=== PATIENT | male | born 1960 | race Caucasian/White ===

== ENCOUNTER 2018-11-19 07:36 | Inpatient (IN) ==
--- NOTE | 2018-11-14 18:02 | EKG Report ---
Test Performed on : 11/14/2018 5:25:47 PM Test Reason : PAT Blood Pressure : / mmHG Vent. Rate : 067 BPM Atrial Rate : 067 BPM P-R Int : 168 ms QRS Dur : 076 ms QT Int : 416 ms P-R-T Axes : 060 063 044 degrees QTc Int : 439 ms Sinus rhythm. with premature supraventricular complexes. Otherwise normal ECG When compared with ECG of 26-OCT-2015 10:56, premature supraventricular complexes. are now present Vent. rate has decreased BY 45 BPM Confirmed by Ángel DUENAS, Matt Fritz ([id number]) on 11/16/2018 9:02:17 AM
[2018-11-14 18:06] LABS: URINE SOURCE CLEAN CATCH
[2018-11-14 18:10] LABS: BASO# 0.02 X1000 (0.0-0.2); BASO% 0.2 % (0.0-0.8); EOS# 0.16 X1000 (0.0-0.7); EOS% 1.9 % (0.0-10.0); HEMATOCRIT 49.4 % (42.0-52.0); HEMOGLOBIN 16.9 g/dL (14.0-18.0); LYMPH# 2.54 X1000 (1.2-3.4); LYMPH% 30.2 % (20.5-51.1); MCHC 34.2 g/dL (33-37); MCV 93.6 FL (81-99); MONO# 1.17 X1000 (0.11-0.59); MONO% 13.9 % (1.7-9.3); MPV 10.6 FL (7.4-10.4); NEUT# 4.51 X1000 (1.4-6.5); NEUT% 53.8 % (42.2-75.2); PLT 102 X1000 (130-400); RBC 5.28 XMIL (4.7-6.1); RDW 12.3 % (11.5-14.5)
[2018-11-14 18:17] LABS: BILIRUBIN URINE NEGATIVE (NEGATIVE); BLOOD URINE NEGATIVE (NEGATIVE); COLOR YELLOW; GLUCOSE URINE NEGATIVE (NEGATIVE); KETONE URINE NEGATIVE (NEGATIVE); LEUKOCYTES URINE NEGATIVE (NEGATIVE); NITRITE URINE NEGATIVE (NEGATIVE); PROTEIN URINE TRACE mg/dL (NEGATIVE); SP GRAVITY URINE 1.025; TURBIDITY URINE CLEAR (CLEAR); UROBILINOGEN URINE 3 mg/dL (NORMAL)
[2018-11-14 18:19] LABS: UR EPITHELIAL CELLS <10 /HPF (<10); URINE BACTERIA NEGATIVE /HPF; URINE RBC <10 /HPF (<10); URINE WBC <10 /HPF (<10)
[2018-11-14 18:20] LABS: HEMOGLOBIN A1C 4.5 % (4.8-6.0)
[2018-11-14 18:25] LABS: INR 1.08; PROTIME 14.9 Seconds (11.0-16.0)
[2018-11-14 18:26] LABS: AGAP 12; BUN 16 mg/dL (8-22); CHLORIDE 103 mmol/L (98-107); COSMO 282; CREATININE 0.7 mg/dL (0.7-1.2); ESTIMATED GFR > 60; GLUCOSE 82 mg/dL (70-104); SODIUM 141 mmol/L (136-145); TCO2 26 mmol/L (25-35)
[2018-11-19] MEDS ORDERED: DIPRIVAN 1% 500 MG/50 ML BOTTLE ONE (07:53)
[2018-11-19] MEDS ORDERED: LYRICA ONE (07:58)
[2018-11-19] MEDS ORDERED: COLACE ONE (07:58)
[2018-11-19] MEDS ORDERED: LR 1,000 ML ONE (07:58)
[2018-11-19] MEDS ORDERED: REGLAN ONE (07:58)
[2018-11-19] MEDS ORDERED: CELEBREX ONE (07:58)
[2018-11-19] MEDS ORDERED: PEPCID ONE (07:58)
[2018-11-19] MEDS ORDERED: NEOSPORIN G.U. IRRIGANT ONE (08:09)
[2018-11-19] MEDS: KEFZOL 1 GM/D5W 2 GM/100 ML IVPB ONE ×2 (08:34→12:41)
[2018-11-19] MEDS: CYKLOKAPRON 1,000 MG/NS 1,000 MG/100 ML IVPB ONE ×2 (09:00→12:42)
[2018-11-19] MEDS ORDERED: ATROPINE ONE (09:42)
[2018-11-19] MEDS ORDERED: OFIRMEV 1000 MG/ISOTONIC SOLN 1,000 MG/100 ML BOTTLE ONE (09:42)
[2018-11-19] MEDS ORDERED: ZOFRAN ONE (09:42)
[2018-11-19] MEDS ORDERED: VERSED ONE (09:42)
[2018-11-19] MEDS ORDERED: DECADRON ONE (09:42)
[2018-11-19] MEDS ORDERED: FENTANYL ONE ×2 (09:42→09:56)
[2018-11-19] MEDS ORDERED: ROBINUL ONE (09:48)
[2018-11-19] MEDS ORDERED: NEO-SYNEPHRINE ONE (10:11)
[2018-11-19] MEDS ORDERED: DIPRIVAN 1% ONE (10:26)
[2018-11-19] MEDS: MARCAINE 0.25% PF/EPI 1:200,000 ONE ×2 (10:50→12:42)
[2018-11-19] MEDS: TORADOL ONE ×2 (10:50→12:43)
[2018-11-19] MEDS: DURAMORPH ONE ×2 (10:50→12:42)
[2018-11-19] MEDS: EXPAREL 1.3% ONE ×2 (10:50→12:43)
[2018-11-19] MEDS: SODIUM CHLORIDE 0.9% ONE ×2 (10:50→12:43)
[2018-11-19] MEDS ORDERED: NS 1,000 ML ONE (11:00)
[2018-11-19 11:08] LABS: URINE SOURCE CATH
[2018-11-19] MEDS ORDERED: PERCOCET-10 ONE (11:08)
[2018-11-19 11:15] LABS: BILIRUBIN URINE NEGATIVE (NEGATIVE); BLOOD URINE NEGATIVE (NEGATIVE); COLOR YELLOW; GLUCOSE URINE NEGATIVE (NEGATIVE); KETONE URINE NEGATIVE (NEGATIVE); LEUKOCYTES URINE NEGATIVE (NEGATIVE); NITRITE URINE NEGATIVE (NEGATIVE); PH URINE 6.5; PROTEIN URINE TRACE mg/dL (NEGATIVE); SP GRAVITY URINE 1.026; TURBIDITY URINE CLEAR (CLEAR); UR EPITHELIAL CELLS <10 /HPF (<10); URINE BACTERIA NEGATIVE /HPF; URINE RBC <10 /HPF (<10); URINE WBC <10 /HPF (<10); UROBILINOGEN URINE NORMAL (NORMAL)
--- NOTE | 2018-11-19 11:45 | OPERATIVE NOTE ---
PROCEDURE DATE: 11/19/2018 PREOPERATIVE DIAGNOSIS: Left hip degenerative joint disease. POSTOPERATIVE DIAGNOSIS: Left hip degenerative joint disease. PROCEDURE PERFORMED: Left anterior total hip arthroplasty using [facility] size 58 hemispherical shell with 36 mm inside diameter liner, a 17 high offset stem with a +436 mm neck length head. ANESTHESIA: Spinal. SURGEON: Jeffery Powers MD. NURSE ADVISOR: Yvonne Jacobson PA-C, who was present throughout the case whose assistance was critical for exposure, placement of the implants, and wound closure. Her assistance was critical in assisting with decision making and implanting the prostheses. Her assistance was necessary for the case. BLOOD LOSS: Minimal. DRAINS: Hemovac x1. DESCRIPTION OF PROCEDURE: The patient was brought to the operative suite and placed in supine position. After successful administration of spinal anesthesia, the patient was placed on the OSI table in the usual position for left hip. The left hip was then prepped and draped in usual sterile fashion. A longitudinal incision was made beginning 3 cm distal and 3 cm lateral to the anterior superior iliac spine, seen distally and slightly laterally 8 cm. Dissected sharply through the skin and subcutaneous tissue down to the tensor fascia. The tensor fascia was incised and dissected bluntly down deep tensor fascia, deep tensor fascia was incised and circumflex vessels were electrocauterized exposing the anterior capsule. A T-capsulotomy was performed exposing the femoral neck. Femoral neck cut was made with the oscillating saw. Femoral head was removed power corkscrew. The labrum was resected. The acetabulum was serially reamed to 58 to accept a 58 cup. The 58 cup was then driven into place in the proper amount inclination and anteversion. Once this verified to be in good position, it was stable. The acetabular liner was locked onto the shell. Attention was then directed to the femur, it was externally rotated, extended, adducted, and elevated out of the wound with the hook on the OSI bed. The lateral neck was rongeured. The canal was serially broached to a size 17. A size 17 high offset +4 neck length was trialed and found be excellent leg length, offset, fit and fill of the stem and stability of the hip. The trial was then removed. The definitive stem was seated onto the femur, and then the ceramic +4 36 mm Delta head was locked onto the [place] taper, and the hip was again reduced. It was again found to be in excellent position. The hip was copiously irrigated with normal saline containing irrigant and Vashe irrigation. It was injected with Exparel including the posterior capsule, anterior capsule, anterior musculature, and subcutaneous tissue. The anterior capsule was repaired with 0 V-Loc suture. A drain was placed deep to the tensor fascia and buried around the stem of the neck. The extensor fascia was closed with 0 V-Loc suture. Skin edge was approximated with 2-0 Vicryl. Skin was closed with a 4-0 Monocryl and a Prineo dressing. A sterile dressing was applied. The patient tolerated the procedure well without complication. At the end of the procedure, all counts were correct x2. The patient was transferred to the recovery room in stable condition. cc: Jeffery Powers MD [facility]
[2018-11-19] MEDS ORDERED: MILK OF MAGNESIA PO PRN (12:45)
[2018-11-19] MEDS ORDERED: ZOFRAN ODT PO PRN (12:45)
[2018-11-19] MEDS ORDERED: MORPHINE IV PRN ×3 (12:45)
[2018-11-19] MEDS ORDERED: ZOFRAN IV PRN (12:45)
[2018-11-19] MEDS ORDERED: OXY IR PO PRN (12:45)
[2018-11-19] MEDS: NS 1,000 ML IV SCH (12:46)
[2018-11-19] MEDS: ULTRAM PO SCH ×2 (12:46→17:45)
[2018-11-19] MEDS ORDERED: CYKLOKAPRON 1,000 MG in NS 100 ML IV ONE (14:00)
[2018-11-19] MEDS: OXY IR PO PRN ×3 (14:40→22:24)
[2018-11-19] MEDS: KEFZOL 2 GM in NS 50 ML IV SCH (15:18)
[2018-11-19] MEDS: TYLENOL PO SCH ×2 (16:20→22:24)
[2018-11-19] MEDS: PERIDEX MT SCH (21:10)
[2018-11-19] MEDS: LYRICA PO SCH (21:10)
[2018-11-19] MEDS: COLACE PO SCH (21:10)
[2018-11-20] MEDS: KEFZOL 2 GM in NS 50 ML IV SCH (00:39)
[2018-11-20] MEDS: ULTRAM PO SCH ×2 (00:39→06:34)
[2018-11-20] MEDS: NS 1,000 ML IV SCH ×2 (00:40→06:17)
[2018-11-20] MEDS: XARELTO PO SCH ×2 (06:18→06:19)
[2018-11-20 06:30] LABS: HEMATOCRIT 38.4 % (42.0-52.0); HEMOGLOBIN 13.3 g/dL (14.0-18.0)
[2018-11-20] MEDS: OXY IR PO PRN ×2 (06:34→09:15)
[2018-11-20 06:53] LABS: AGAP 8; BUN 13 mg/dL (8-22); CHLORIDE 101 mmol/L (98-107); COSMO 265; CREATININE 0.6 mg/dL (0.7-1.2); ESTIMATED GFR > 60; GLUCOSE 109 mg/dL (70-104); POTASSIUM 4.5 mmol/L (3.5-5.1); SODIUM 132 mmol/L (136-145); TCO2 23 mmol/L (25-35)
[2018-11-20 07:49] VITALS: BP 137/83
[2018-11-20] MEDS ORDERED: DECADRON IV ONE (09:00)
[2018-11-20] MEDS ORDERED: PEPCID PO SCH (09:00)
[2018-11-20] MEDS ORDERED: CELEBREX PO SCH (09:00)
[2018-11-20] MEDS: PERIDEX MT SCH (09:07)
[2018-11-20] MEDS: COLACE PO SCH (09:08)
[2018-11-20] MEDS: LYRICA PO SCH (09:09)
--- NOTE | 2018-11-21 07:30 | DISCHARGE SUMMARY ---
ADMISSION DATE: 11/19/2018 DISCHARGE DATE: 11/20/2018 DISCHARGE DIAGNOSIS: Left hip degenerative joint disease status post left anterior total hip arthroplasty. DISCHARGE MEDICATIONS: See discharge medications. DISPOSITION: Patient to discharged home with home health physical therapy. Instructed to return for any signs or symptoms of infection or deep venous thrombosis. Instructed to return to see Dr. Powers next . HOSPITAL COURSE: On day of admission patient underwent a left anterior total hip arthroplasty. His postoperative course was unremarkable. At discharge he is afebrile, tolerating a regular diet and ambulating well with physical therapy. His wound is clean, dry, intact without sign of infection. He has had 375 mL out of his drain 100 over the last 8 hours, therefore, we have discontinued his Xarelto. We will place him on aspirin. He walked 250 feet with physical therapy. His hemoglobin is 13.4. His hematocrit is 38.4. He is discharged home in stable condition, instructed to follow up as described above. cc: Jeffery Powers MD
== END 2018-11-20 11:50 | disposition home health service (06) | DRG 470 ==
LOC: SURHOLD 07:36 → 4N 09:22
PROVIDERS: ADMIT Orthopaedic Surgery; ATTEND Orthopaedic Surgery
CPT/HCPCS: 76000; 80048; 81001; 82040; 83036; 85014; 85018; 85025; 85610; 85730; 86850; 86900; 86901; 93005; 93010; 94761; 94799; 97116; 97162; 97165; A9270; C9290; J0131; J0461; J0690; J1100; J1885; J2250; J2270; J2274; J2275; J2370; J2405; J3010; J7030; J7120; Q9974; S0020